=== PATIENT | female | born 1990 | race Caucasian/White ===

== ENCOUNTER 2019-05-12 00:40 | Outpatient (CLI) | payer MEDICAID ==
[2019-05-12 01:27] LABS: APPEARANCE,URINE SLIGHTLY-CLOUDY; BILIRUBIN,URINE NEGATIVE (NEGATIVE); COLOR,URINE YELLOW; GLUCOSE, URINE NEGATIVE (NEGATIVE); KETONES,URINE TRACE mg/dL (NEGATIVE); LEUKOCYTE ESTERASE,URINE NEGATIVE (NEGATIVE); NITRITE,URINE NEGATIVE (NEGATIVE); PROTEIN,URINE NEGATIVE (NEGATIVE); URINE SPECIFIC GRAVITY 1.028; UROBILINOGEN,URINE NEGATIVE mg/dL (<2.0)
--- NOTE | 2019-05-12 01:46 | Non Stress Test Report ---
Non Stress Test Datetime Report Generated by CPN: 05/12/2019 01:45 DEMOGRAPHIC EGA NST: 39.5 INDICATION Indication for Study: Ordered by Provider VITAL SIGNS Temperature - NST: 98.0 MONITORING Monitor Explained: Monitor Explained; Test Explained; Patient Verbalized Understanding Time on Monitor: 05/12/2019 00:53 Time off Monitor: 05/12/2019 01:43 NST Duration: 50 NST INTERVENTIONS NST Interventions: None Physician Notified NST: Dr. Clancy BABY A: [id number] BABY A Movement : Present Contraction Frequency : irregular FHR Baseline : 125 Accelerations : 15X15 Decelerations : None Variability : Moderate 6-25bpm NST Review: Meets Criteria for Reactive NST NST Review and Verified By : Irineo Fuller RN NST Results: Reactive NST REPORT Report Trigger: Send Report
[2019-05-12 01:54] LABS: URINE AMPHETAMINES SCREEN NEGATIVE; URINE BARBITURATES SCREEN NEGATIVE; URINE BENZODIAZEPINES SCREEN NEGATIVE; URINE COCAINE SCREEN NEGATIVE; URINE MARIJUANA (THC) SCREEN NEGATIVE; URINE METHADONE SCREEN NEGATIVE; URINE PHENCYCLIDINE SCREEN NEGATIVE
== END 2019-05-12 03:35 | disposition home or self-care (01) ==
LOC: LC 00:40
PROVIDERS: ATTEND Student in an Organized Health Care Education/Training Program
PROC: 4A1HXCZ Monitoring of Products of Conception, Cardiac Rate, External Approach (ICD-10-PCS; principal; 2019-05-12)
DX: Z34.93 Encounter for supervision of normal pregnancy, unspecified, third trimester (principal); Z3A.39 39 weeks gestation of pregnancy
CPT/HCPCS: 59025; 80307; 81005

== ENCOUNTER 2019-05-15 13:47 | Inpatient (IN) | payer MEDICAID ==
[2019-05-15] MEDS ORDERED: OXYTOCIN/NORMAL SALINE 20 UNIT/1,000 ML RTUINJ IV PRN (19:02)
[2019-05-15] MEDS ORDERED: DINOPROSTONE 10 MG VAGINAL INSERT.SR PV PRN ×2 (19:02→19:21)
[2019-05-15] MEDS ORDERED: DINOPROSTONE 10 MG VAGINAL INSERT.SR ONE (19:20)
[2019-05-15] MEDS ORDERED: ZOLPIDEM TARTRATE 5 MG TABLET PO PRN (19:23)
[2019-05-15] MEDS ORDERED: ACETAMINOPHEN 325 MG TABLET PO PRN (19:23)
[2019-05-15] MEDS ORDERED: MAG HYDROX/AL HYDROX/SIMETH SUSP 30 ML UDCUP PO PRN (19:24)
[2019-05-15] MEDS: RINGERS SOLUTION,LACTATED 1,000 ML IV PRN (19:28)
[2019-05-15 19:32] LABS: URINE AMPHETAMINES SCREEN NEGATIVE; URINE BARBITURATES SCREEN NEGATIVE; URINE BENZODIAZEPINES SCREEN NEGATIVE; URINE COCAINE SCREEN NEGATIVE; URINE MARIJUANA (THC) SCREEN NEGATIVE; URINE METHADONE SCREEN NEGATIVE; URINE PHENCYCLIDINE SCREEN NEGATIVE
[2019-05-15 19:32] LABS: ABSOLUTE BASOPHILS # (AUTO) 0.1 10^3/uL (0.0-0.2); ABSOLUTE EOSINOPHILS # (AUTO) 0.1 10^3/uL (0.0-0.6); ABSOLUTE LYMPHOCYTES (AUTO) 2.5 10^3/uL (0.5-4.7); ABSOLUTE MONOCYTES (AUTO) 0.8 10^3/uL (0.1-1.4); ABSOLUTE NEUT (AUTO) 10.9 10^3/uL (1.7-8.2); BASOPHILS % (AUTO) 0.4 % (0-2); EOSINOPHILS % (AUTO) 0.8 % (0-6); HEMATOCRIT 40.1 % (36.0-47.0); HEMOGLOBIN 13.5 g/dL (12.0-15.5); LYMPHOCYTES % (AUTO) 17.4 % (13-45); MEAN CORPUSCULAR HEMOGLOBIN 30.2 pg (27.0-33.4); MEAN CORPUSCULAR HGB CONC 33.8 g/dL (32.0-36.0); MEAN CORPUSCULAR VOLUME 89 fl (80-97); MONOCYTES % (AUTO) 5.9 % (3-13); PLATELET COUNT 196 10^3/uL (150-450); RED BLOOD COUNT 4.49 10^6/uL (3.72-5.28); RED CELL DISTRIBUTION WIDTH 14.4 % (11.5-14.0); SEGMENTED NEUTROPHILS % (AUTO) 75.5 % (42-78); TOTAL CELLS COUNTED % (AUTO) 100 %; WHITE BLOOD COUNT 14.4 10^3/uL (4.0-10.5)
[2019-05-15] MEDS ORDERED: RINGERS SOLUTION,LACTATED 1,000 ML IV ONE (20:00)
[2019-05-15] MEDS ORDERED: PENICILLIN G POTASSIUM 5,000,000 UNIT in DEXTROSE 5%-WATER 100 ML IV ONE (20:00)
[2019-05-15 20:31] LABS: APPEARANCE,URINE CLOUDY; BILIRUBIN,URINE NEGATIVE (NEGATIVE); GLUCOSE, URINE NEGATIVE (NEGATIVE); KETONES,URINE NEGATIVE (NEGATIVE); LEUKOCYTE ESTERASE,URINE NEGATIVE (NEGATIVE); NITRITE,URINE NEGATIVE (NEGATIVE); PROTEIN,URINE 30 mg/dL (NEGATIVE); URINE SPECIFIC GRAVITY 1.026; UROBILINOGEN,URINE NEGATIVE mg/dL (<2.0)
[2019-05-15 20:32] LABS: COLOR,URINE DARK YELLOW
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
[2019-05-15] MEDS ORDERED: ZOLPIDEM TARTRATE 5 MG TABLET ONE (22:35)
[2019-05-16] MEDS: RINGERS SOLUTION,LACTATED 1,000 ML IV PRN (02:05)
[2019-05-16] MEDS ORDERED: OXYTOCIN/NORMAL SALINE 20 UNIT/1,000 ML RTUINJ IV PRN (08:00)
[2019-05-16] MEDS ORDERED: LIDOCAINE 1% INJ-PF (10 MG/ML) 30 ML SDV ONE (09:04)
[2019-05-16] MEDS ORDERED: MISOPROSTOL 0.2 MG TABLET ONE (09:04)
[2019-05-16] MEDS ORDERED: OXYTOCIN 10 UNIT/ML VIAL ONE (09:04)
[2019-05-16] MEDS ORDERED: OXYTOCIN/NORMAL SALINE 20 UNIT/1,000 ML RTUINJ ONE (09:04)
[2019-05-16] MEDS ORDERED: PENICILLIN G-K 5 MILLION UNIT VIAL ONE ×4 (09:05→21:34)
[2019-05-16] MEDS: PENICILLIN G POTASSIUM 2,500,000 UNIT in DEXTROSE 5%-WATER 50 ML IV SCH ×3 (12:59→21:43)
[2019-05-16] MEDS ORDERED: EPHEDRINE SULFATE INJ 50 MG/1 ML AMPULE ONE (16:15)
[2019-05-16] MEDS ORDERED: BUPIVACAINE HCL 0.25 % INJ/PF (2.5 MG/1 ML) 30 ML VIAL ONE (16:16)
[2019-05-16] MEDS ORDERED: FENTANYL/BUPIVACAINE/NS/PF 300 MCG/150 ML RTUINJ EPI ONE (16:16)
[2019-05-16] MEDS ORDERED: ONDANSETRON HCL INJ/PF 4 MG/2 ML SDV IV ONE (18:30)
[2019-05-16] MEDS ORDERED: DIPHENHYDRAMINE HCL 50 MG/ML VIAL ONE (19:57)
[2019-05-16] MEDS ORDERED: DIPHENHYDRAMINE HCL 50 MG/ML VIAL IV ONE (20:00)
[2019-05-16] MEDS ORDERED: HYDROXYZINE PAMOATE 50 MG CAPSULE ONE (22:01)
[2019-05-16] MEDS ORDERED: HYDROXYZINE PAMOATE 50 MG CAPSULE PO ONE (22:10)
[2019-05-17] MEDS ORDERED: FENTANYL/BUPIVACAINE/NS/PF 300 MCG/150 ML RTUINJ EPI ONE (00:53)
[2019-05-17] MEDS: RINGERS SOLUTION,LACTATED 1,000 ML IV PRN (01:00)
[2019-05-17] MEDS ORDERED: DIPHENHYDRAMINE HCL 50 MG/ML VIAL ONE (01:26)
[2019-05-17] MEDS ORDERED: DIPHENHYDRAMINE HCL 50 MG/ML VIAL IV ONE (02:00)
[2019-05-17] MEDS ORDERED: OXYTOCIN/NORMAL SALINE 20 UNIT/1,000 ML RTUINJ ONE (03:44)
[2019-05-17] MEDS ORDERED: DIBUCAINE 1% OINTMENT 56 GM TP PRN (05:09)
[2019-05-17] MEDS ORDERED: ACETAMINOPHEN WITH CODEINE #3 TABLET PO PRN (05:09)
[2019-05-17] MEDS ORDERED: MEASLES,MUMPS&RUBELLA VACC/PF 0.5 ML VIAL SUBCUT PRN (05:09)
[2019-05-17] MEDS ORDERED: DIPH/PERTUSS(ACELL)/TETANUS VAC/PF 0.5 ML SYR (>=10YO) IM PRN (05:09)
[2019-05-17] MEDS ORDERED: OXYTOCIN/NORMAL SALINE 20 UNIT/1,000 ML RTUINJ IV PRN (05:09)
[2019-05-17] MEDS ORDERED: BENZOCAINE/MENTHOL AEROSOL SPRAY 56 ML TOP PRN (05:09)
[2019-05-17] MEDS ORDERED: ZOLPIDEM TARTRATE 5 MG TABLET PO PRN (05:09)
--- NOTE | 2019-05-17 07:21 | Warning Signs in Babies ---
VOD Warning Signs Datetime Report Generated by [facility]: 05/17/2019 07:21 VOD#608 -Warning Signs in Babies: Viewed with Parent(s)/Family (05/17/2019 07:16:Yady Hays RN)
--- NOTE | 2019-05-17 07:30 | Delivery Summary ---
Del Sum A-C Datetime Report Generated by CPN: 05/17/2019 07:30 DELIVERY PERSONNEL DELIVERY PERSONNEL: [id number] Delivery Doctor:: Sharla Prince MD Labor and Delivery Nurse:: GELY Hawkins Labor and Delivery Nurse:: Farheen Chung RN Nursery Nurse:: HASEEB Plascencia Tech/DIRECTOR GEOTHERMAL OPERATIONS: Katina Rojas, ST MATERNAL INFORMATION Delivery Anesthesia: Epidural Medications After Delivery: Pitocin Drip 20 Units/1000ml NSS Delivery QBL: 100 Maternal Complications: Other Complication Details: GDM, GBS positive LABOR SUMMARY EDC: 05/14/2019 00:00 No. Babies in Womb: 1 Attempted: No Labor Anesthesia: Epidural LABOR INFORMATION Reason for Induction: Maternal Diabetes Onset of Labor: 05/16/2019 10:30 Complete Dilatation: 05/17/2019 03:59 Cervical Ripening Agents: Cervidil Oxytocin: Induction Group B Beta Strep: positive Antibiotics # of Doses: 4 Antibiotics Time of Last Dose: 2129 Name of Antibiotic Given: PCN Steroids Given: None Reason Steroids Not Administered: Not Applicable MEMBRANES Membranes Rupture Method: Spontaneous Rupture of Membranes: 05/16/2019 14:59 Length of Rupture (hr): 13.90 Amniotic Fluid Color: Clear Amniotic Fluid Amount: Small Amniotic Fluid Odor: Normal STAGES OF LABOR Stage 1 hr: 17 Stage 1 min: 29 Stage 2 hr: 0 Stage 2 min: 54 Stage 3 hr: 0 Stage 3 min: 4 Total Time in Labor hr: 18 Total Time in Labor min: 27 VAGINAL DELIVERY Episiotomy: None Laceration #1: None Laceration Extension #1: N/A Laceration Repair: Not Applicable CSECTION DELIVERY Primary Indication: N/A CSection Incision: N/A BABY A INFORMATION Infant Delivery Date/Time: 05/17/2019 04:53 Method of Delivery: Vaginal Born in Route : No : N/A Forceps: N/A Vacuum Extraction: N/A PRESENTATION/POSITION BABY A Presentation: Cephalic Cephalic Presentation: Vertex Vertex Position: Right Occipital Anterior Breech Presentation: N/A PLACENTA INFORMATION BABY A Placenta Delivery Time : 05/17/2019 04:57 Placenta Method of Delivery: Spontaneous Placenta Status: Delivered SCORES BABY A Heart Rate 1 min: >100 bpm Resp Effort 1 min: Good Cry Reflex Irritability 1 min: Cough or Sneeze or Pulls Away Muscle Tone 1 min: Some Flexion of Extremities Color 1 min: Blue/Pale SCORE 1 MIN: 7 Heart Rate 5 min: >100 bpm Resp Effort 5 min: Good Cry Reflex Irritability 5 min: Cough or Sneeze or Pulls Away Muscle Tone 5 min: Active Motion Color 5 min: Body [place], Extremities Blue SCORE 5 MIN: 9 INFORMATION BABY A Gestational Age at Delivery: 40.0 Gestational Status: Full Term- 39- 40.6 Weeks Infant Outcome : Liveborn Condition : Stable Sex: Female IDENTIFICATION BABY A Verification Date/Time: 05/17/2019 05:14 ID Band Number: [id number] Mother's Name Verified: Yes Infant RN Verifying : Sautry Additional Verifying Personnel: [facility] RN WEIGHT/LENGTH BABY A Birthweight (gm): 3496 Weight (lb): 7 Infant Weight (oz): 11 Length (in): 20.00 Length (cm): 50.80 CORD INFORMATION BABY A No. Cord Vessels: 3 Nuchal Cord : N/A Cord Blood Taken: Yes-For Storage (Mom's Blood type +) Infant Suction: Mouth; Nose ASSESSMENT BABY A Complications: None Physical Findings at Delivery: Molding of the Head Infant Respirations: Appears Normal Skin to Skin: Yes Master Ship/ALS Called : No Care By: C Pierre Transferred To: Remains with Mother SIGNATURES Signature: with User ID: [email or web address]
[2019-05-17] MEDS: DOCUSATE SODIUM 100 MG CAPSULE PO SCH ×2 (09:29→18:08)
[2019-05-17] MEDS: SENNOSIDES/DOCUSATE 8.6-50 MG 1 EACH TABLET PO SCH (09:29)
[2019-05-17] MEDS: NICOTINE 21 MG/24 HR PATCH.TD24 TD SCH (09:29)
[2019-05-17] MEDS: PRENATAL VITAMIN W DHA CAPSULE PO SCH (09:29)
[2019-05-17] MEDS: FERROUS SULFATE 325 MG TABLET PO SCH ×2 (09:29→18:08)
[2019-05-17] MEDS: IBUPROFEN 800 MG TABLET PO SCH ×3 (13:08→21:01)
[2019-05-17] MEDS: ACETAMINOPHEN WITH CODEINE #3 TABLET PO PRN ×2 (14:01→18:08)
[2019-05-18] MEDS: ACETAMINOPHEN WITH CODEINE #3 TABLET PO PRN (02:27)
[2019-05-18] MEDS: IBUPROFEN 800 MG TABLET PO SCH ×3 (05:46→21:28)
[2019-05-18 07:02] LABS: HEMATOCRIT 34.9 % (36.0-47.0); HEMOGLOBIN 11.7 g/dL (12.0-15.5); MEAN CORPUSCULAR HGB CONC 33.5 g/dL (32.0-36.0); MEAN CORPUSCULAR VOLUME 90 fl (80-97); PLATELET COUNT 154 10^3/uL (150-450); RED BLOOD COUNT 3.88 10^6/uL (3.72-5.28); RED CELL DISTRIBUTION WIDTH 14.1 % (11.5-14.0); WHITE BLOOD COUNT 12.4 10^3/uL (4.0-10.5)
[2019-05-18] MEDS: PRENATAL VITAMIN W DHA CAPSULE PO SCH (09:17)
[2019-05-18] MEDS: FERROUS SULFATE 325 MG TABLET PO SCH ×2 (09:17→18:04)
[2019-05-18] MEDS: SENNOSIDES/DOCUSATE 8.6-50 MG 1 EACH TABLET PO SCH (09:17)
[2019-05-18] MEDS: NICOTINE 21 MG/24 HR PATCH.TD24 TD SCH (09:17)
[2019-05-18] MEDS: DOCUSATE SODIUM 100 MG CAPSULE PO SCH ×2 (09:17→18:04)
--- NOTE | 2019-05-18 09:32 | PDOC PROGRESS REPORT ---
Subjective-OB Progress Note for:: 05/18/19 Subjective: Laying in bed with baby, friend at BS, , voiding Physical Exam (OB) Vital Signs: Temp Pulse Resp BP Pulse Ox 97.9 F 82 18 119/61 99 05/18/19 07:27 05/18/19 07:27 05/18/19 07:27 05/18/19 07:27 05/18/19 07:27 Intake & Output 05/17/19 05/18/19 05/19/19 06:59 06:59 06:59 Intake Total 1000 200 Balance 1000 200 - PIH/Pre-Eclampsia Clonus: Negative Headache: Absent Epigastric Pain: No Visual Changes: No - Lochia Lochia Amount: Scant < 10 ml Lochia Color: Rubra/Red - Abdomen Description: Soft, Round Hernia Present: No Fundal Description: Firm, Midline Fundal Height: u/u - u/2 Objective-Diagnostic Laboratory: 05/18/19 06:28 05/18/19 06:28 WBC 12.4 H RBC 3.88 Hgb 11.7 L Hct 34.9 L MCV 90 MCH 30.0 MCHC 33.5 RDW 14.1 H Plt Count 154 Assessment and Plan(PN) - Assessment and Plan (1) Methamphetamine abuse Is this a current diagnosis for this admission?: Yes (2) Marijuana abuse Is this a current diagnosis for this admission?: Yes (3) Smoker Is this a current diagnosis for this admission?: Yes (4) GBS (group B Streptococcus carrier), +RV culture, currently Is this a current diagnosis for this admission?: Yes (5) Delivery normal Is this a current diagnosis for this admission?: Yes (6) Encounter for induction of labor Is this a current diagnosis for this admission?: Yes - Time Spent with Patient Time with patient: Less than 15 minutes Medications reviewed and adjusted accordingly: Yes - Disposition Anticipated Discharge: Home Within: within 24 hours
[2019-05-19] MEDS: ACETAMINOPHEN WITH CODEINE #3 TABLET PO PRN ×2 (01:42→09:13)
[2019-05-19] MEDS: IBUPROFEN 800 MG TABLET PO SCH (05:06)
[2019-05-19 07:41] VITALS: BP 113/62
[2019-05-19] MEDS: NICOTINE 21 MG/24 HR PATCH.TD24 TD SCH (09:12)
[2019-05-19] MEDS: PRENATAL VITAMIN W DHA CAPSULE PO SCH (09:13)
[2019-05-19] MEDS: FERROUS SULFATE 325 MG TABLET PO SCH (09:13)
[2019-05-19] MEDS: DOCUSATE SODIUM 100 MG CAPSULE PO SCH (09:13)
[2019-05-19] MEDS: SENNOSIDES/DOCUSATE 8.6-50 MG 1 EACH TABLET PO SCH (09:13)
--- NOTE | 2019-05-19 10:11 | PDOC DISCHARGE SUMMARY ---
Final Diagnosis Discharge Date: 05/19/19 - PPDay #2, doing well, A+ rubella Immune, - Final Diagnosis (1) Encounter for induction of labor Is this a current diagnosis for this admission?: Yes (2) GBS (group B Streptococcus carrier), +RV culture, currently Is this a current diagnosis for this admission?: Yes (3) Marijuana abuse Is this a current diagnosis for this admission?: Yes (4) Methamphetamine abuse Is this a current diagnosis for this admission?: Yes (5) PTSD (post-traumatic stress disorder) Is this a current diagnosis for this admission?: Yes (6) Is this a current diagnosis for this admission?: Yes (7) Smoker Is this a current diagnosis for this admission?: Yes Discharge Data - Discharge Medication Prescriptions: Ibuprofen [Motrin 800 mg Tablet] 800 mg PO Q8 #60 tablet Home Medications: Pantoprazole Sodium [Protonix [address] Tablet] 20 mg PO DAILY 05/12/19 No122/Iron/Folic Acid [ Multi Tablet] 1 tab PO DAILY 05/12/19 Ibuprofen [Motrin 800 mg Tablet] 800 mg PO Q8 #60 tablet 05/19/19 Reason(s) for Admission: Onset of Labor Procedures: NST, Ultrasound Intrapartum Procedure(s): Spontaneous Vaginal Delivery - Diagnosis Test Laboratory: Temp Pulse Resp BP Pulse Ox 98.1 F 76 16 113/62 99 05/19/19 07:26 05/19/19 07:26 05/19/19 07:26 05/19/19 07:26 05/19/19 07:26 05/15/19 05/15/19 05/18/19 18:44 19:15 06:28 RBC 4.49 3.88 Hgb 13.5 11.7 L Hct 40.1 34.9 L Urine Opiates Screen NEGATIVE - Discharge information/Instructions Discharge Activity: Activity As Tolerated, No Lifting Over 10 Pounds, Pelvic Rest Discharge Diet: As Tolerated, Regular Disposition: HOME, SELF-CARE Follow up with: [facility] in: 4, Weeks
== END 2019-05-19 11:59 | disposition home or self-care (01) | DRG 807 ==
LOC: LR 18:32 → 2S 05-17 07:55
PROVIDERS: ADMIT Obstetrics & Gynecology; ATTEND Obstetrics & Gynecology
PROC: 10E0XZZ Delivery of Products of Conception, External Approach (ICD-10-PCS; principal; 2019-05-17)
PROC: 3E033VJ Introduction of Other Hormone into Peripheral Vein, Percutaneous Approach (ICD-10-PCS; 2019-05-17)
DX: O99.824 Streptococcus B carrier state complicating childbirth (principal); Z37.0 Single live birth; F15.10 Other stimulant abuse, uncomplicated; F12.10 Cannabis abuse, uncomplicated; F43.10 Post-traumatic stress disorder, unspecified; O99.334 Smoking (tobacco) complicating childbirth; O99.323 Drug use complicating pregnancy, third trimester; O24.425 Gestational diabetes mellitus in childbirth, controlled by oral hypoglycemic drugs; F17.210 Nicotine dependence, cigarettes, uncomplicated; Z3A.40 40 weeks gestation of pregnancy
CPT/HCPCS: 36415; 80307; 81001; 82962; 85025; 85027; 86592; 86850; 86900; 86901; 94760; J1200; J2540; J2590; J3010; J3490; J7060

== ENCOUNTER 2019-05-27 08:01 | Inpatient (IN) | payer MEDICAID ==
[2019-05-27] MEDS ORDERED: ACETAMINOPHEN 325 MG TABLET PO ONE (08:57)
[2019-05-27 09:12] LABS: HEMATOCRIT 43.4 % (36.0-47.0); HEMOGLOBIN 14.6 g/dL (12.0-15.5); MEAN CORPUSCULAR HGB CONC 33.7 g/dL (32.0-36.0); MEAN CORPUSCULAR VOLUME 89 fl (80-97); PLATELET COUNT 225 10^3/uL (150-450); RED BLOOD COUNT 4.89 10^6/uL (3.72-5.28); RED CELL DISTRIBUTION WIDTH 13.4 % (11.5-14.0); WHITE BLOOD COUNT 23.7 10^3/uL (4.0-10.5)
[2019-05-27 09:16] LABS: APPEARANCE,URINE CLEAR; BILIRUBIN,URINE NEGATIVE (NEGATIVE); COLOR,URINE RED; GLUCOSE, URINE NEGATIVE (NEGATIVE); KETONES,URINE NEGATIVE (NEGATIVE); LEUKOCYTE ESTERASE,URINE LARGE (NEGATIVE); NITRITE,URINE NEGATIVE (NEGATIVE); PROTEIN,URINE 100 mg/dL (NEGATIVE); URINE SPECIFIC GRAVITY 1.019; UROBILINOGEN,URINE NEGATIVE mg/dL (<2.0)
[2019-05-27 09:18] LABS: INTERNATIONAL RATION (INR) 0.99; PROTHROMBIN TIME 13.1 SEC (11.4-15.4)
[2019-05-27] MEDS ORDERED: NORMAL SALINE 1000 ML 1,000 ML IV ONE ×3 (09:19→11:49)
[2019-05-27 09:26] LABS: ALANINE AMINOTRANSFERASE 46 U/L (9-52); ALBUMIN 4.2 g/dL (3.5-5.0); ALKALINE PHOSPHATASE 86 U/L (38-126); ANION GAP 16 (5-19); ASPARTATE AMINO TRANSFERASE 36 U/L (14-36); BILIRUBIN,DIRECT 0.4 mg/dL (0.0-0.4); BILIRUBIN,TOTAL 1.3 mg/dL (0.2-1.3); BLOOD UREA NITROGEN 17 mg/dL (7-20); CALCIUM 9.5 mg/dL (8.4-10.2); CARBON DIOXIDE 20 mmol/L (22-30); CHLORIDE 103 mmol/L (98-107); GLUCOSE 84 mg/dL (75-110); POTASSIUM 4.2 mmol/L (3.6-5.0); SODIUM 138.5 mmol/L (137-145); TOTAL PROTEIN 7.9 g/dL (6.3-8.2)
[2019-05-27] MEDS ORDERED: ONDANSETRON HCL INJ/PF 4 MG/2 ML SDV IV ONE (09:29)
[2019-05-27] MEDS ORDERED: MORPHINE SULFATE 10 MG/ML INJ IV ONE (09:29)
[2019-05-27] MEDS ORDERED: CEFTRIAXONE 1 GM/D5W RTU 1 GM/50 ML RTUPB IV ONE (09:30)
--- NOTE | 2019-05-27 09:31 | ER Document Report ---
ED General - General Chief Complaint: Abdominal Pain Stated Complaint: VOMITING/ABDOMINAL PAIN Time Seen by Provider: 05/27/19 09:13 Mode of Arrival: Ambulatory Information source: Patient, [facility] Records Notes: 29-year-old female day 10 presents with complaint of lower abdominal pain that started 2 days prior to arrival. Patient describes it as cramping, sharp. Patient has had associated nausea and vomiting that started this morning. Patient also states that she is having pain and pressure with urination. Patient did deliver vaginally without complication. Has not had her exam yet. TRAVEL OUTSIDE OF THE [place] IN LAST 30 DAYS: No - Related Data Allergies/Adverse Reactions: No Known Allergies Allergy (Verified 05/15/19 19:01) Past Medical History - General Information source: Patient, [facility] Records - Social History Smoking Status: Never Smoker Chew tobacco use (# tins/day): No Frequency of alcohol use: None Drug Abuse: None Lives with: Family Family History: Reviewed & Not Pertinent Patient has suicidal ideation: No Patient has homicidal ideation: No - Medical History Medical History: Negative Renal/ Medical History: Denies: Hx Peritoneal Dialysis Past Surgical History: Reports: Hx Genitourinary Surgery - x2 Review of Systems - Review of Systems Notes: REVIEW OF SYSTEMS: CONSTITUTIONAL : Denies sweats. Denies recent illness. Denies weight loss, recent hospitalizations. EENT: Denies visual changes, eye pain. Denies sore throat, oral lesions, difficulty swallowing. CARDIOVASCULAR: Denies chest pain. Denies palpitations. Denies lower extremity edema. RESPIRATORY: Denies cough. Denies shortness of breath, wheezing. GASTROINTESTINAL: Denies abdominal distention. Denies diarrhea. Denies blood in vomitus, stools, or per rectum. Denies black, tarry stools. Denies constipation. GENITOURINARY: Denies difficulty urinating, painful urination, frequency, blood in urine, or vaginal discharge. MUSCULOSKELETAL: Denies back or neck pain or stiffness. Denies joint pain or swelling. SKIN: Denies rash, lesions or sores. HEMATOLOGIC : Denies easy bruising or bleeding. LYMPHATIC: Denies swollen glands. NEUROLOGICAL: Denies confusion or altered mental status. Denies loss of consciousness. Denies dizziness or lightheadedness. Denies headache. Denies weakness or paralysis. Denies problems difficulty with ambulation, slurred speech. Denies sensory loss, numbness, or tingling. Denies seizures. PSYCHIATRIC: Denies anxiety or stress. Denies depression, suicidal ideation, or homicidal ideation. Denies visual or auditory hallucinations. Physical Exam - Vital signs Vitals: Temp Pulse Resp BP Pulse Ox 100.3 F 135 H 20 109/76 97 05/27/19 08:06 05/27/19 08:06 05/27/19 08:06 05/27/19 08:06 05/27/19 08:06 - Notes Notes: PHYSICAL EXAMINATION: GENERAL: Well-appearing, well-nourished and in no acute distress. HEAD: Atraumatic, normocephalic. EYES: Pupils equal round and reactive to light, extraocular movements intact, conjunctiva are normal. ENT: Nares patent, oropharynx clear without exudates. Moist mucous membranes. NECK: Normal range of motion, supple without lymphadenopathy LUNGS: Breath sounds clear to auscultation bilaterally and equal. No wheezes rales or rhonchi. HEART: Regular rate and rhythm without murmurs ABDOMEN: Mild abdominal tenderness with palpation to the right and left lower quadrant. No guarding, no rebound. No masses appreciated. Female : deferred Musculoskeletal: Normal range of motion, no pitting or edema. No cyanosis. NEUROLOGICAL: Cranial nerves grossly intact. Normal speech, normal gait. Normal sensory, motor exams PSYCH: Normal mood, normal affect. SKIN: Warm, Dry, normal turgor, no rashes or lesions noted. Course - Re-evaluation Re-evalutation: Laboratory 05/27/19 05/27/19 05/27/19 08:36 08:36 08:36 WBC 23.7 H RBC 4.89 Hgb 14.6 Hct 43.4 MCV 89 MCH 30.0 MCHC 33.7 RDW 13.4 Plt Count 225 Total Counted 100 Seg Neutrophils % Not Reportable Seg Neuts % (Manual) 95 H Lymphocytes % Not Reportable Lymphocytes % (Manual) 3 L Monocytes % Not Reportable Monocytes % (Manual) 2 L Eosinophils % Not Reportable Eosinophils % (Manual) 0 Basophils % Not Reportable Basophils % (Manual) 0 Absolute Neutrophils Not Reportable Abs Neuts (Manual) 22.5 H Absolute Lymphocytes Not Reportable Abs Lymphs (Manual) 0.7 Absolute Monocytes Not Reportable Abs Monocytes (Manual) 0.5 Absolute Eosinophils Not Reportable Absolute Eos (Manual) 0.0 Absolute Basophils Not Reportable Abs Basophils (Manual) 0.0 Platelet Comment ADEQUATE Hypochromasia SLIGHT Tear Drop Cells SLIGHT PT 13.1 INR 0.99 Sodium 138.5 Potassium 4.2 Chloride 103 Carbon Dioxide 20 L Anion Gap 16 BUN 17 Creatinine 0.70 Est GFR ( Amer) > 60 Est GFR (Non-Af Amer) > 60 Glucose 84 Lactic Acid Calcium 9.5 Total Bilirubin 1.3 Direct Bilirubin 0.4 Neonat Total Bilirubin Not Reportable Neonat Direct Bilirubin Not Reportable Neonat Indirect Bili Not Reportable AST 36 ALT 46 Alkaline Phosphatase 86 Total Protein 7.9 Albumin 4.2 Urine Color Urine Appearance Urine pH Ur Specific [place] Urine Protein Urine Glucose (UA) Urine Ketones Urine Blood Urine Nitrite Urine Bilirubin Urine Urobilinogen Ur Leukocyte Esterase Urine WBC (Auto) Urine RBC (Auto) Urine Bacteria (Auto) Squamous Epi Cells Auto Urine Mucus (Auto) Urine Ascorbic Acid 05/27/19 05/27/19 08:36 08:36 WBC RBC Hgb Hct MCV MCH MCHC RDW Plt Count Total Counted Seg Neutrophils % Seg Neuts % (Manual) Lymphocytes % Lymphocytes % (Manual) Monocytes % Monocytes % (Manual) Eosinophils % Eosinophils % (Manual) Basophils % Basophils % (Manual) Absolute Neutrophils Abs Neuts (Manual) Absolute Lymphocytes Abs Lymphs (Manual) Absolute Monocytes Abs Monocytes (Manual) Absolute Eosinophils Absolute Eos (Manual) Absolute Basophils Abs Basophils (Manual) Platelet Comment Hypochromasia Tear Drop Cells PT INR Sodium Potassium Chloride Carbon Dioxide Anion Gap BUN Creatinine Est GFR ( Amer) Est GFR (Non-Af Amer) Glucose Lactic Acid 2.3 H Calcium Total Bilirubin Direct Bilirubin Neonat Total Bilirubin Neonat Direct Bilirubin Neonat Indirect Bili AST ALT Alkaline Phosphatase Total Protein Albumin Urine Color RED Urine Appearance CLEAR Urine pH 6.0 Ur Specific [place] 1.019 Urine Protein 100 H Urine Glucose (UA) NEGATIVE Urine Ketones NEGATIVE Urine Blood LARGE H Urine Nitrite NEGATIVE Urine Bilirubin NEGATIVE Urine Urobilinogen NEGATIVE Ur Leukocyte Esterase LARGE H Urine WBC (Auto) >182 Urine RBC (Auto) >182 Urine Bacteria (Auto) 1+ Squamous Epi Cells Auto 7 Urine Mucus (Auto) OCC Urine Ascorbic Acid NEGATIVE Transvaginal US 05/27/19 00:00 IMPRESSION: Blood clot versus retained products. Retained products can be avascular. Temp Pulse Resp BP Pulse Ox 98 F 135 H 17 107/63 96 05/27/19 10:47 05/27/19 08:06 05/27/19 11:01 05/27/19 11:01 05/27/19 11:01 29-year-old female day 10 presents with complaint of lower abdominal pain that started 2 days prior to arrival. Patient describes it as cramping, sharp. Patient has had associated nausea and vomiting that started this morning. Patient also states that she is having pain and pressure with urination. Patient did deliver vaginally without complication. Has not had her exam yet. Vitals reviewed and patient is tachycardic, febrile. She does not appear toxic but she does appear ill. Patient did receive IV fluids, ceftriaxone, clindamycin. 05/27/19 11:47 I spoke to with regarding the patient's laboratory findings, ultrasound findings. He believes this could be endometritis and recommends admission. Has requested an addition of Cleocin to her antibiotic regimen. 05/27/19 11:53 05/27/19 13:19 - Vital Signs Vital signs: Temp Pulse Resp BP Pulse Ox 98 F 135 H 15 107/72 95 05/27/19 10:47 05/27/19 08:06 05/27/19 12:01 05/27/19 12:01 05/27/19 12:01 - Laboratory Result Diagrams: 05/27/19 08:36 05/27/19 08:36 Laboratory results interpreted by me: 05/27/19 05/27/19 05/27/19 08:36 08:36 08:36 WBC 23.7 H Seg Neuts % (Manual) 95 H Lymphocytes % (Manual) 3 L Monocytes % (Manual) 2 L Abs Neuts (Manual) 22.5 H Carbon Dioxide 20 L Lactic Acid 2.3 H Urine Protein Urine Blood Ur Leukocyte Esterase 05/27/19 08:36 WBC Seg Neuts % (Manual) Lymphocytes % (Manual) Monocytes % (Manual) Abs Neuts (Manual) Carbon Dioxide Lactic Acid Urine Protein 100 H Urine Blood LARGE H Ur Leukocyte Esterase LARGE H - Diagnostic Test Radiology reviewed: Image reviewed, Reports reviewed Discharge - Discharge Clinical Impression: Endometritis, Tachycardia Fever Qualifiers: Fever type: unspecified Qualified Code(s): R50.9 - Fever, unspecified Abdominal pain Qualifiers: Abdominal location: unspecified location Qualified Code(s): R10.9 - Unspecified abdominal pain UTI (urinary tract infection) Qualifiers: Urinary tract infection type: site unspecified Hematuria presence: with hematuria Qualified Code(s): N39.0 - Urinary tract infection, site not specified Leukocytosis Qualifiers: Leukocytosis type: other Qualified Code(s): D72.828 - Other elevated white blood cell count Condition: Stable Disposition: ADMITTED INPATIENT Admitting Provider: [facility] Unit Admitted: Post
[2019-05-27 09:39] LABS: ABSOLUTE LYMPHOCYTES# (MANUAL) 0.7 10^3/uL (0.5-4.7); ABSOLUTE MONOCYTES # (MANUAL) 0.5 10^3/uL (0.1-1.4); BASOPHILS % (MANUAL) 0 % (0-2); EOSINOPHILS % (MANUAL) 0 % (0-6); LYMPHOCYTES % (MANUAL) 3 % (13-45); MONOCYTES % (MANUAL) 2 % (3-13); SEGMENTED NEUTROPHILS % (MAN) 95 % (42-78); TOTAL CELLS COUNTED 100
[2019-05-27 09:40] LABS: HYPOCHROMASIA SLIGHT; TEAR DROP CELLS SLIGHT
[2019-05-27 09:54] LABS: PLATELET COMMENT ADEQUATE
--- NOTE | 2019-05-27 11:06 | RADIOLOGY REPORT (SQ) ---
EXAM DESCRIPTION: U/S NON-OB PELVIS TV W/O DOP COMPLETED DATE/TIME: 05/27/2019 10:47 am REASON FOR STUDY: pelvic pain following vaginal delivery COMPARISON: None. TECHNIQUE: Dynamic and static grayscale images acquired of the pelvis via transvaginal approach and recorded on PACS. Additional selected color Doppler and spectral images recorded. LIMITATIONS: None. FINDINGS: UTERUS: 14.0 x 9.0 x 6.7 cm. 3.5 cm heterogeneous hypoechoic lesion lower uterine segment . Avascular. ENDOMETRIAL STRIPE: See above. CERVIX: No nabothian cysts. RIGHT OVARY AND DOPPLER: Normal size. No worrisome masses. Normal arterial vascular flow without evid ence for torsion. LEFT OVARY AND DOPPLER: Normal size. No worrisome masses. Normal arterial vascular flow without evide nce for torsion. FREE FLUID: None noted. OTHER: No other significant finding. IMPRESSION: Blood clot versus retained products. Retained products can be avascular. TECHNICAL DOCUMENTATION: JOB ID: [id number] [employer]- All Rights Reserved Rev-04/02 Reading location - IP/workstation name: [email or web address]
[2019-05-27] MEDS: CLINDAMYCIN 600 MG/D5W RTU 600 MG/50 ML RTUPB IV SCH ×2 (11:56→14:14)
[2019-05-27] MEDS ORDERED: ACETAMINOPHEN WITH CODEINE #3 TABLET PO PRN (14:22)
[2019-05-27] MEDS ORDERED: RINGERS SOLUTION,LACTATED 1,000 ML IV PRN (14:22)
[2019-05-27] MEDS ORDERED: ONDANSETRON HCL INJ/PF 4 MG/2 ML SDV IV PRN (15:18)
--- NOTE | 2019-05-27 15:34 | PDOC H&P ---
History of Present Illness Admission Date/PCP: 05/27/19 12:02 Patient complains of: 10 days post with low abd pain x 2days and N/V that started today History of Present Illness: FE REILLY is a 29 year old female. she was admitted through the ER by Dr Whitman Past Medical History LMP: 07/27/2018 Gynecological Infection: Yes - none in past. current endometritis Past Medical History: obesity Endocrine History Note: GDM Psychiatric Medical History: Reports: Depression, General Anxiety Disorder, Post Traumatic Stress Disorder Past Surgical History Past Surgical History: knee surgery Social History Lives with: Family - sep from spouse for 2 years, FOB incarcerated in [place], mother has infant, sister dropped her off at the hospital and went home. Smoking Status: Former Smoker Frequency of Alcohol Use: None Hx Recreational Drug Use: No Drugs: None Hx Prescription Drug Abuse: No Family History Family History: Reviewed & Not Pertinent Parental Family History Reviewed: Yes - mother with ovarian CA Children Family History Reviewed: Yes Sibling(s) Family History Reviewed.: Yes Medication/Allergy Home Medications: No122/Iron/Folic Acid [ Multi Tablet] 1 tab PO DAILY 05/12/19 Ibuprofen [Motrin 800 mg Tablet] 800 mg PO Q8 #60 tablet 05/19/19 Allergies/Adverse Reactions: No Known Allergies Allergy (Verified 05/15/19 19:01) Review of Systems Gastrointestinal: PRESENT: abdominal pain, nausea, vomiting Physical Exam - Physical Exam Vital Signs: Temp Pulse Resp BP Pulse Ox 97.9 F 71 16 110/61 98 05/27/19 13:51 05/27/19 13:51 05/27/19 13:51 05/27/19 13:51 05/27/19 13:51 Intake & Output 05/26/19 05/27/19 05/28/19 06:59 06:59 06:59 Intake Total 3100 Balance 3100 Weight 108.2 kg General appearance: PRESENT: cooperative - crying Eye exam: PRESENT: periorbital swelling Respiratory exam: PRESENT: other. ABSENT: accessory muscle use, chest wall tenderness, clear to auscultation dick, crackles, decreased breath sounds, prolonged expiratory phas, rales, retraction, rhonchi, stridor, symmetrical, tachypnea, wheezes Cardiovascular exam: PRESENT: RRR, other - no murmur GI/Abdominal exam: PRESENT: normal bowel sounds, soft, tenderness - low abd Neurological exam: PRESENT: alert, awake, oriented to person, oriented to place, oriented to time, oriented to situation Psychiatric exam: PRESENT: depressed Result Laboratory Results: 05/27/19 08:36 05/27/19 08:36 05/27/19 05/27/19 05/27/19 08:36 08:36 08:36 WBC 23.7 H RBC 4.89 Hgb 14.6 Hct 43.4 MCV 89 MCH 30.0 MCHC 33.7 RDW 13.4 Plt Count 225 Seg Neutrophils % Not Reportable Lymphocytes % Not Reportable Monocytes % Not Reportable Eosinophils % Not Reportable Basophils % Not Reportable Absolute Neutrophils Not Reportable Absolute Lymphocytes Not Reportable Absolute Monocytes Not Reportable Absolute Eosinophils Not Reportable Absolute Basophils Not Reportable Sodium 138.5 Potassium 4.2 Chloride 103 Carbon Dioxide 20 L Anion Gap 16 BUN 17 Creatinine 0.70 Est GFR ( Amer) > 60 Est GFR (Non-Af Amer) > 60 Glucose 84 Lactic Acid 2.3 H Calcium 9.5 Total Bilirubin 1.3 AST 36 ALT 46 Alkaline Phosphatase 86 Total Protein 7.9 Albumin 4.2 Urine Color Urine Appearance Urine pH Ur Specific [place] Urine Protein Urine Glucose (UA) Urine Ketones Urine Blood Urine Nitrite Ur Leukocyte Esterase Urine WBC (Auto) Urine RBC (Auto) 05/27/19 08:36 WBC RBC Hgb Hct MCV MCH MCHC RDW Plt Count Seg Neutrophils % Lymphocytes % Monocytes % Eosinophils % Basophils % Absolute Neutrophils Absolute Lymphocytes Absolute Monocytes Absolute Eosinophils Absolute Basophils Sodium Potassium Chloride Carbon Dioxide Anion Gap BUN Creatinine Est GFR ( Amer) Est GFR (Non-Af Amer) Glucose Lactic Acid Calcium Total Bilirubin AST ALT Alkaline Phosphatase Total Protein Albumin Urine Color RED Urine Appearance CLEAR Urine pH 6.0 Ur Specific [place] 1.019 Urine Protein 100 H Urine Glucose (UA) NEGATIVE Urine Ketones NEGATIVE Urine Blood LARGE H Urine Nitrite NEGATIVE Ur Leukocyte Esterase LARGE H Urine WBC (Auto) >182 Urine RBC (Auto) >182 Impressions: Transvaginal US 05/27/19 00:00 IMPRESSION: Blood clot versus retained products. Retained products can be avascular. Assessment & Plan - Diagnosis (1) Endometritis Is this a current diagnosis for this admission?: Yes (2) Abdominal pain Qualifiers: Abdominal location: unspecified location Qualified Code(s): R10.9 - Unspecified abdominal pain Is this a current diagnosis for this admission?: Yes - Time Critical Time spent with patient: Less than 15 minutes Medications reviewed and adjusted accordingly: Yes Anticipated discharge: Home Within: within 48 hours - Inpatient Certification Based on my medical assessment, after consideration of the patient's comorbidities, presenting symptoms, or acuity I expect that the services needed warrant INPATIENT care.: Yes I certify that my determination is in accordance with my understanding of Medicare's requirements for reasonable and necessary INPATIENT services [42 CFR 412.3e].: Yes Medical Necessity: Need for Pain Control, Need for IV Antibiotics
[2019-05-27] MEDS ORDERED: IBUPROFEN 800 MG TABLET ONE (15:44)
[2019-05-27] MEDS: ACETAMINOPHEN WITH CODEINE #3 TABLET PO PRN ×2 (15:49→21:11)
[2019-05-27] MEDS: IBUPROFEN 800 MG TABLET PO SCH (18:03)
[2019-05-27] MEDS: CLINDAMYCIN 900 MG/D5W RTU 900 MG/50 ML RTUPB IV SCH (21:06)
[2019-05-27] MEDS: CEFTRIAXONE SODIUM 1,000 MG in DEXTROSE 5%-WATER 50 ML IV SCH (22:17)
--- NOTE | 2019-05-27 22:40 | EKG REPORT ---
SEVERITY:- NORMAL ECG - SINUS RHYTHM : Confirmed by: Yesika Adair MD 27-May-2019 22:39:53
[2019-05-28] MEDS: ACETAMINOPHEN 325 MG TABLET PO PRN ×3 (00:24→18:37)
[2019-05-28] MEDS: CLINDAMYCIN 900 MG/D5W RTU 900 MG/50 ML RTUPB IV SCH ×3 (05:08→21:24)
[2019-05-28 05:34] LABS: HEMATOCRIT 37.5 % (36.0-47.0); HEMOGLOBIN 12.7 g/dL (12.0-15.5); MEAN CORPUSCULAR HEMOGLOBIN 30.4 pg (27.0-33.4); MEAN CORPUSCULAR VOLUME 89 fl (80-97); PLATELET COUNT 178 10^3/uL (150-450); RED CELL DISTRIBUTION WIDTH 13.8 % (11.5-14.0); WHITE BLOOD COUNT 10.7 10^3/uL (4.0-10.5)
[2019-05-28] MEDS: IBUPROFEN 800 MG TABLET PO SCH ×3 (09:00→21:24)
[2019-05-28] MEDS: CEFTRIAXONE SODIUM 1,000 MG in DEXTROSE 5%-WATER 50 ML IV SCH ×2 (09:01→22:41)
[2019-05-29 05:22] LABS: HEMOGLOBIN 11.9 g/dL (12.0-15.5); MEAN CORPUSCULAR HEMOGLOBIN 30.5 pg (27.0-33.4); MEAN CORPUSCULAR VOLUME 90 fl (80-97); PLATELET COUNT 182 10^3/uL (150-450); RED BLOOD COUNT 3.91 10^6/uL (3.72-5.28); RED CELL DISTRIBUTION WIDTH 13.8 % (11.5-14.0); WHITE BLOOD COUNT 7.1 10^3/uL (4.0-10.5)
[2019-05-29] MEDS: CLINDAMYCIN 900 MG/D5W RTU 900 MG/50 ML RTUPB IV SCH (05:26)
[2019-05-29] MEDS: IBUPROFEN 800 MG TABLET PO SCH (05:26)
[2019-05-29 07:01] VITALS: BP 106/56
--- NOTE | 2019-05-29 08:50 | DISCHARGE SUMMARY E ---
Discharge Summary NAME: FE REILLY : 1990 AGE: 29Y ADMITTED: 05/27/2019 DISCHARGED: 05/29/2019 FINAL DIAGNOSIS: 1. ENDOMETRITIS. 2. HOSPITAL URINARY TRACT INFECTION. HISTORY OF PRESENT CONDITION: Patient is a 29-year-old who presented to the emergency room 10 days status post a vaginal delivery with a temperature and complaining of lower abdominal pain with nausea and vomiting. HOSPITAL COURSE: Patient was admitted when she was found to have an elevated white blood count, low abdominal tenderness, and fever. She was started on IV antibiotics (Rocephin/clindamycin). During hospitalization, temperature defervesced as well as white blood cell count. Patient was discharged home on hospital day 3, being afebrile for more than 24 hours. At the time of discharge, patient stated she was feeling well and desired to go home. She is discharged to follow up with her OB provider in 1 week or before if problems occur. DICTATING PHYSICIAN: AARON DE LA TORRE M.D. [id number] [facility]#: [id number] ID: [id number] JOB#: [id number] ACCT: [id number] cc:Eze DEVLIN M.D >
== END 2019-05-29 08:09 | disposition home or self-care (01) | DRG 776 ==
LOC: ER 08:01 → EH 12:02 → 2N 13:42
PROVIDERS: ADMIT Obstetrics & Gynecology Gynecology; ATTEND Obstetrics & Gynecology Gynecology
DX: O86.12 Endometritis following delivery (principal); O86.20 Urinary tract infection following delivery, unspecified; N39.0 Urinary tract infection, site not specified; F41.1 Generalized anxiety disorder; F41.9 Anxiety disorder, unspecified; F43.10 Post-traumatic stress disorder, unspecified; O99.345 Other mental disorders complicating the puerperium
CPT/HCPCS: 36415; 76830; 80053; 81001; 83605; 85025; 85027; 85610; 87040; 87086; 93005; 93010; J0696; J2270; J2405; J3490; J7030; J7060; J7120

== ENCOUNTER 2020-08-20 16:10 | Emergency (ER) | payer MEDICAID ==
[2020-08-20] MEDS ORDERED: KETOROLAC TROMETHAMINE 60 MG/2 ML SDV IM ONE (16:50)
[2020-08-20] MEDS ORDERED: ONDANSETRON HCL INJ/PF 4 MG/2 ML SDV IV ONE (16:50)
--- NOTE | 2020-08-20 16:52 | ER Document Report ---
ED Medical Screen (RME) - General Chief Complaint: Flank Pain Stated Complaint: FLANK PAIN Time Seen by Provider: 08/20/20 16:45 Mode of Arrival: Ambulatory Information source: Patient Notes: HPI; 30-year-old female presents to the emergency room complaining of left flank pain for the past week. Complains of nausea but no vomiting. Denies dysuria but does complain of pressure when urinating. Denies any hematuria. States he was referred by [facility] for possible kidney stone. No history of kidney stones. No medications for pain. PE: Alert and oriented x3. Lungs: Clear to auscultation without rales, rhonchi, wheezes. Heart: Regular rate rhythm without murmurs, rubs, gallops. Positive for left CVA tenderness. I have greeted and performed a rapid initial assessment of this patient. A comprehensive ED assessment and evaluation of the patient, analysis of test results and completion of the medical decision making process will be conducted by additional ED providers. I have specifically instructed the patient or family members with the patient to immediately return to any nursing staff should anything change in the patient's condition or with their chief complaint. TRAVEL OUTSIDE OF THE [place] IN LAST 30 DAYS: No - Related Data Allergies/Adverse Reactions: No Known Allergies Allergy (Verified 05/15/19 19:01) Past Medical History Renal/ Medical History: Denies: Hx Peritoneal Dialysis Psychiatric Medical History: Reports: Hx Depression, Hx Post Traumatic Stress Disorder Past Surgical History: Reports: Hx Genitourinary Surgery - x2 Physical Exam - Vital signs Vitals: Temp Pulse Resp BP Pulse Ox 98.8 F 100 20 140/80 H 97 08/20/20 16:32 08/20/20 16:32 08/20/20 16:32 08/20/20 16:32 08/20/20 16:32 Course - Vital Signs Vital signs: Temp Pulse Resp BP Pulse Ox 98.8 F 100 20 140/80 H 97 08/20/20 16:32 08/20/20 16:32 08/20/20 16:32 08/20/20 16:32 08/20/20 16:32
[2020-08-20 17:34] LABS: ABSOLUTE BASOPHILS # (AUTO) 0.1 10^3/uL (0.0-0.2); ABSOLUTE EOSINOPHILS # (AUTO) 0.2 10^3/uL (0.0-0.6); ABSOLUTE LYMPHOCYTES (AUTO) 2.9 10^3/uL (0.5-4.7); ABSOLUTE MONOCYTES (AUTO) 0.4 10^3/uL (0.1-1.4); BASOPHILS % (AUTO) 1.1 % (0-2); HEMATOCRIT 41.1 % (36.0-47.0); LYMPHOCYTES % (AUTO) 30.2 % (13-45); MEAN CORPUSCULAR VOLUME 88 fl (80-97); MONOCYTES % (AUTO) 4.6 % (3-13); PLATELET COUNT 196 10^3/uL (150-450); RED BLOOD COUNT 4.66 10^6/uL (3.72-5.28); RED CELL DISTRIBUTION WIDTH 14.4 % (11.5-14.0); SEGMENTED NEUTROPHILS % (AUTO) 62.1 % (42-78); TOTAL CELLS COUNTED % (AUTO) 100 %; WHITE BLOOD COUNT 9.6 10^3/uL (4.0-10.5)
[2020-08-20 17:35] LABS: APPEARANCE,URINE CLEAR; BILIRUBIN,URINE NEGATIVE (NEGATIVE); COLOR,URINE YELLOW; GLUCOSE, URINE NEGATIVE (NEGATIVE); KETONES,URINE NEGATIVE (NEGATIVE); LEUKOCYTE ESTERASE,URINE NEGATIVE (NEGATIVE); NITRITE,URINE NEGATIVE (NEGATIVE); PROTEIN,URINE NEGATIVE (NEGATIVE); URINE SPECIFIC GRAVITY 1.028
[2020-08-20 18:12] LABS: ALBUMIN 4.2 g/dL (3.5-5.0); ALKALINE PHOSPHATASE 56 U/L (38-126); ANION GAP 11 (5-19); ASPARTATE AMINO TRANSFERASE 30 U/L (14-36); BILIRUBIN,DIRECT 0.2 mg/dL (0.0-0.4); BILIRUBIN,TOTAL 0.5 mg/dL (0.2-1.3); BLOOD UREA NITROGEN 14 mg/dL (7-20); CALCIUM 9.4 mg/dL (8.4-10.2); CARBON DIOXIDE 21 mmol/L (22-30); CHLORIDE 108 mmol/L (98-107); GLUCOSE 131 mg/dL (75-110); POTASSIUM 3.8 mmol/L (3.6-5.0); TOTAL PROTEIN 7.1 g/dL (6.3-8.2)
--- NOTE | 2020-08-20 19:04 | RADIOLOGY REPORT (SQ) ---
EXAM DESCRIPTION: CT ABD/PELVIS NO ORAL OR IV IMAGES COMPLETED DATE/TIME: 08/20/2020 6:46 pm REASON FOR STUDY: flank pain COMPARISON: None. TECHNIQUE: CT scan of the abdomen and pelvis performed without intravenous or oral contrast. Images reviewed with lung, soft tissue, and bone windows. Reconstructed coronal and sagittal MPR images revi ewed. All images stored on PACS. All CT scanners at this facility use dose modulation, iterative reconstruction, and/or weight based d osing when appropriate to reduce radiation dose to as low as reasonably achievable (ALARA). [facility]: Dose Right [facility]: CareDose [facility]: Dose Right [facility]: Teradose 4D [facility]: [email or web address] RADIATION DOSE: CT Rad equipment meets quality standard of care and radiation dose reduction techniq ues were employed. CTDIvol: 19.0 mGy. DLP: 1093 mGy-cm.mGy. LIMITATIONS: None. FINDINGS: LOWER CHEST: No significant findings. No nodules or infiltrates. NON-CONTRASTED LIVER, SPLEEN, ADRENALS: Evaluation limited by lack of IV contrast. No identified sign ificant masses. PANCREAS: No masses. No peripancreatic inflammatory changes. GALLBLADDER: No calcified stones. No inflammatory changes to suggest cholecystitis. RIGHT KIDNEY AND URETER: No cysts identified. No solid masses. No calcified stones. No hydronephrosis or hydroureter. LEFT KIDNEY AND URETER: No cysts identified. No solid masses. No calcified stones. No hydronephrosis or hydroureter. AORTA AND RETROPERITONEUM: No aneurysm. No retroperitoneal masses or adenopathy. BOWEL AND PERITONEAL CAVITY: No obvious masses or inflammatory changes. No free fluid. APPENDIX: Normal. PELVIS, BLADDER, AND ABDOMINAL WALL:No abnormal masses. No free fluid. Unremarkable bladder. BONES: No acute findings. OTHER: No other significant finding. IMPRESSION: NO ACUTE FINDINGS. TECHNICAL DOCUMENTATION: JOB ID: [id number] [id number] Quality ID # [id number]: Final reports with documentation of one or more dose reduction techniques (e.g., Au tomated exposure control, adjustment of the mA and/or kV according to patient size, use of iterative reconstruction technique) 2010 [employer]- All Rights Reserved Reading location - IP/workstation name: Station [email or web address]
[2020-08-20] MEDS ORDERED: OXYCODONE-ACETAMINOPHEN 5-325 MG TABLET PO ONE (22:34)
--- NOTE | 2020-08-20 22:39 | ER Document Report ---
ED General - General Chief Complaint: Flank Pain Stated Complaint: FLANK PAIN Time Seen by Provider: 08/20/20 16:45 Mode of Arrival: Ambulatory Information source: Patient Notes: 30-year-old female coming in today with left-sided back pain that has been bothering her for the past 2 weeks. She went to see people at [facility] who referred her here for evaluation for kidney stones. Fevers or chills. No nausea or vomiting. TRAVEL OUTSIDE OF THE [place] IN LAST 30 DAYS: No - Related Data Allergies/Adverse Reactions: No Known Allergies Allergy (Verified 05/15/19 19:01) Past Medical History - General Information source: Patient - Social History Smoking Status: Current Every Day Smoker Family History: Reviewed & Not Pertinent - Past Medical History Cardiac Medical History: Reports: Hx Hypercholesterolemia Renal/ Medical History: Denies: Hx Peritoneal Dialysis Psychiatric Medical History: Reports: Hx Depression, Hx Post Traumatic Stress Disorder Past Surgical History: Reports: Hx Genitourinary Surgery - x2 Review of Systems - Review of Systems Notes: Constitutional: No fevers. No chills. EENT: No eye redness. No eye pain. No ear pain. No sore throat. Cardiovascular: No chest pain. No palpitations. Respiratory: No cough. No shortness of breath. No respiratory distress. Gastrointestinal: No abdominal pain. No nausea, vomiting, or diarrhea. Genitourinary: Atraumatic. No lesions. No pain. No discharge. Musculoskeletal: Atraumatic. No swelling. No deformities. Positive for left- sided back pain Skin: No rash or lesions. Lymphatic: No swollen lymph nodes. Neurologic: No headache. No syncope. Psychiatric: No suicidal or homicidal ideation. Physical Exam - Vital signs Vitals: Temp Pulse Resp BP Pulse Ox 98.8 F 100 20 140/80 H 97 08/20/20 16:32 08/20/20 16:32 08/20/20 16:32 08/20/20 16:32 08/20/20 16:32 - Notes Notes: General: Well-developed, well-nourished. In no acute distress. Non-toxic appearing. Cardiac: Well-perfused. Regular rate and rhythm. No murmurs, rubs, or gallops. Pulmonary: No respiratory distress. No cyanosis. Bilateral lung fiels are clear to auscultation. Abdominal: Non-distended. Non-rigid. Bowels sounds are present in all four quadrants. No guarding or rebound. No CVA tenderness. HEENT: Head is atraumatic. Conjunctivae not reddened. No tearing. PERRL. EOMI. Orbits atraumatic. No periorbital swelling or erythema. Oropharynx is without erythema, swelling, or exudates. Neck: Supple. No adenopathy. No meningismus. Dermatologic: Warm with good turgor. No rash. Atraumatic. Chest: Atraumatic. No chest wall tenderness to palpation. Musculoskeletal: Moves all extremities well. No range of motion deficits. no muscular or joint tenderness. No paraspinal muscle tenderness. no midline spinal tenderness or step-off. Left-sided para thoracic muscle tenderness to palpation. No midline thoracic tenderness or step-off. No midline lumbar spine tenderness or step-off. Genitourinary: Examination deferred Neurologic: No gross neurologic deficits. Psychiatric: Normal mood. Course - Re-evaluation Re-evalutation: 08/20/20 22:37 Labs are unremarkable. There is some red blood cells in the urinalysis without any other evidence of infection. BUN and creatinine normal. Patient not vomiting. CT scan unremarkable for kidney stone or other abdominal pathology. We will give her an additional dose of Percocet p.o. before discharge. - Vital Signs Vital signs: Temp Pulse Resp BP Pulse Ox 98.8 F 100 20 140/80 H 97 08/20/20 16:32 08/20/20 16:32 08/20/20 16:32 08/20/20 16:32 08/20/20 16:32 - Laboratory Result Diagrams: 08/20/20 17:13 08/20/20 17:13 Laboratory results interpreted by me: 08/20/20 08/20/20 08/20/20 17:13 17:13 17:13 RDW 14.4 H Chloride 108 H Carbon Dioxide 21 L Glucose 131 H Urine Blood MODERATE H Urine Urobilinogen 2.0 H Urine Ascorbic Acid 40 H Discharge - Discharge Clinical Impression: Elevated blood pressure reading Back pain Qualifiers: Back pain location: thoracic back pain Chronicity: acute Back pain laterality: left Qualified Code(s): M54.6 - Pain in thoracic spine Condition: Good Disposition: HOME, SELF-CARE Instructions: Hematuria ([facility]), Low Back Pain ([facility]) Additional Instructions: It is possible that you might have passed a small kidney stone prior to the CT scan. There is no evidence of a kidney stone at this time. Your urinalysis shows no evidence of infection, only some red blood cells. In any event we will give you some medicine that should help with the continuing back pain. [facility] for [facility]. Prescriptions: Naproxen 500 mg PO BID 7 Days #14 tablet Forms: Elevated Blood Pressure
[2020-08-20 23:15] VITALS: BP 130/77
== END 2020-08-20 23:10 | disposition home or self-care (01) ==
LOC: ER 16:10
DX: M54.6 Pain in thoracic spine (principal); R03.0 Elevated blood-pressure reading, without diagnosis of hypertension; R10.9 Unspecified abdominal pain; F17.200 Nicotine dependence, unspecified, uncomplicated; E78.00 Pure hypercholesterolemia, unspecified
CPT/HCPCS: 36415; 74176; 80053; 81001; 84703; 85025; 99284